=== PATIENT | male | born 2000 | race Two or more races ===

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

== ENCOUNTER 2025-10-15 11:52 | Emergency (ER) | payer BC, OTHER ==
[2025-10-15] MEDS: Dexamethasone Sod Phos Preservative Free 10 MG/ML Vial IM ONE (12:57)
[2025-10-15] MEDS: Lidocaine 2% Viscous Solution 15 ML UD PO ONE (12:57)
[2025-10-15] MEDS: Ketorolac 30 MG/ML SDV IM ONE (12:58)
== END 2025-10-15 14:00 | disposition home or self-care (01) ==
LOC: MW.ED 11:52
DX: B27.90 Infectious mononucleosis, unspecified without complication (principal)
CPT/HCPCS: 36415; 86308; 87070; 87651; 96372; 99283; J1100; J1885; J3490; A9270-GY